=== PATIENT | female | born 1985 ===

== ENCOUNTER 2017-10-09 20:20 | Emergency (ER) | payer OTHER ==
[~2017-10-09] VITALS: Ht 154.9 cm; Wt 59.1 kg
[2017-10-09 20:22] VITALS: BP 154/99
[2017-10-09 20:47] LABS: CLARITY,URINE SLIGHTLY CLOUDY (Clear); COLOR,URINE YELLOW (Yellow); GLUCOSE, URINE NEGATIVE (Neg); KETONES,URINE NEGATIVE (Neg); LEUKOCYTE ESTERASE ,URINE MODERATE (Neg); NITRITES, URINE NEGATIVE (Neg); OCCULT BLOOD,URINE LARGE (Neg); PH,URINE 6.5 (4.8-8.0); PROTEIN,URINE TRACE mg/dl (Neg)
[2017-10-09 20:51] LABS: UA COLLECTION TYPE CLN CATCH MIDSTREAM
[2017-10-09 20:52] LABS: WBC CLUMPS,URINE FEW /HPF (NEGATIVE); WBC,URINE TNTC /HPF (0-4)
[2017-10-09 20:53] LABS: BACTERIA,URINE 3+ /HPF (Neg); RBC,URINE TNTC /HPF (0-2); SQUAMOUS EPITHELIAL CELL,UR MODERATE /LPF (FEW)
[2017-10-09] MEDS ORDERED: phenazopyridine 100mg tablet PO ONE (21:15)
[2017-10-09] MEDS ORDERED: nitrofuran/nitrofuran macrocrysal 100 MG capsule PO ONE (21:15)
[2017-10-09] MEDS ORDERED: PHEN-873 PO (21:19)
[2017-10-09] MEDS ORDERED: NITR100C6 PO (21:19)
== END 2017-10-09 21:27 | disposition home or self-care (01) ==
LOC: ER 20:21
DX: N30.90 Cystitis, unspecified without hematuria (principal); Z79.899 Other long term (current) drug therapy
CPT/HCPCS: 81001; 87077; 87088; 87186; 99284

== ENCOUNTER 2024-10-15 14:16 | Emergency (ER) | payer BC, OTHER ==
[~2024-10-15] VITALS: Ht 154.9 cm; Wt 79.5 kg
[~2024-10-15 14:16] MED LIST: NITR100C6 PO; PHEN-786 PO
[2024-10-15 14:18] VITALS: BP 139/85; PULSE 80; RESP 15; TEMP 98.7; O2SAT 96
[2024-10-15 14:32] LABS: BILIRUBIN,URINE NEGATIVE (Neg); CLARITY,URINE CLEAR (Clear); COLOR,URINE YELLOW (Yellow); GLUCOSE, URINE NEGATIVE (Neg); KETONES,URINE NEGATIVE (Neg); LEUKOCYTE ESTERASE ,URINE NEGATIVE (Neg); NITRITES, URINE NEGATIVE (Neg); OCCULT BLOOD,URINE NEGATIVE (Neg); PROTEIN,URINE NEGATIVE (Neg); UROBILINOGEN,URINE 0.2 E.U/dL (0.2-1.0)
[2024-10-15 14:38] LABS: UA COLLECTION TYPE CLN CATCH MIDSTREAM
[2024-10-15 16:11] LABS: BASOPHILS # (AUTO) 0.1 X10'3 (0-0.2); BASOPHILS % (AUTO) 0.5 % (0-1); EOSINOPHILS # (AUTO) 0.1 X10'3 (0-0.9); EOSINOPHILS % (AUTO) 0.8 % (0-6); HEMATOCRIT 39.4 % (35.0-45.0); HEMOGLOBIN 13.3 g/dl (12.0-16.0); LYMPHOCYTES # (AUTO) 3.7 X10'3 (1.1-4.8); LYMPHOCYTES % (AUTO) 37.6 % (21-51); MEAN CORPUSCULAR HEMOGLOBIN 29.3 PG (27.0-31.0); MEAN CORPUSCULAR HGB CONC 33.8 g/dL (33.0-36.5); MEAN CORPUSCULAR VOLUME 86.8 FL (78-98); MEAN PLATELET VOLUME 9.7 FL (7.4-10.4); MONOCYTES # (AUTO) 0.7 X10'3 (0-0.9); MONOCYTES % (AUTO) 7.4 % (2-12); NEUTROPHILS # (AUTO) 5.3 X10'3 (1.8-7.7); NEUTROPHILS % (AUTO) 53.7 % (42-75); PLATELET COUNT 247 X10'3 (140-440); RED BLOOD COUNT 4.53 X10'6 (4.20-5.60); RED CELL DISTRIBUTION WIDTH 13.3 % (11.5-14.5); WHITE BLOOD COUNT 9.8 X10'3 (4.5-11.0)
[2024-10-15 16:22] LABS: ALANINE AMINOTRANSFERASE 26 U/L (12-78); ALBUMIN 3.9 G/DL (3.4-5.0); ALKALINE PHOSPHATASE 64 IU/L (46-116); ANION GAP 8 (8-16); ASPARTATE AMINO TRANSFERASE 10 U/L (10-37); BILIRUBIN,TOTAL 0.4 MG/DL (0.1-1.0); BLOOD UREA NITROGEN 12 MG/DL (7-18); BUN/CREATININE RATIO 18.8 (10.0-20.0); CALCIUM 8.9 MG/DL (8.5-10.1); CHLORIDE 103 MMOL/L (99-107); CREATININE 0.64 MG/DL (0.40-0.90); GLUCOSE 109 MG/DL (70-104); LIPASE 31 U/L (16-77); POTASSIUM 3.2 MMOL/L (3.5-5.1); SODIUM 141 MMOL/L (135-145); TOTAL CARBON DIOXIDE 30.2 MMOL/L (24-32); TOTAL PROTEIN 7.7 G/DL (6.4-8.2); eCRCL 87 ML/MIN; eGFR > 90 ML/MIN
--- NOTE | 2024-10-15 16:49 | Physician Documentation ---
History of Present Illness ~ Chief Complaint: Urinary Symptoms Stated Complaint: URINARY COMPLICATIONS Time Seen by MD: 14:33 Primary Medical Doctor: Lashae CARABALLO Patient is seen today with complaints of suprapubic pressure as well as vague low back pain. Patient is concerned for urinary tract infection. She denies any dysuria or urinary urgency or frequency. Patient denies any fevers or chills or chest pain or shortness of breath or abdominal pain or nausea, vomiting, diarrhea. Patient has no other concern or complaint at this time. She states she was feeling kind of tired yesterday and wanted to get checked out today. Patient denies any cough or runny nose or sore throat or cold-like symptoms. Medication Reconciliation Allergies: Coded Allergies: No Known Allergies (Unverified , 10/09/17) Scheduled Nitrofurantoin Monohyd/M-Cryst (Macrobid 100 mg Capsule), 1 CAP PO Q12H Scheduled PRN Phenazopyridine Hcl (Pyridium tablet), 1 TAB PO Q8H PRN for urinary burning Past Medical History Past Medical History: UTI Past Surgical History: no surgical history Alcohol Use: None Drug Use: none Lives In: Home Occupation: employed Review of Systems Constitutional: Denies: chills, fever, weakness Eyes: Denies: pain, blurred vision ENT: Denies: ear pain, nose pain, throat pain, mouth pain Respiratory: Denies: cough, shortness of breath Cardiovascular: Denies: chest pain, palpitations Gastrointestinal: Denies: abdominal pain, nausea, vomiting Genitourinary: Denies: burning, dysuria Female Genitalia: Denies: vaginal discharge, pelvic pain Neurological: Denies: headache, dizziness Musculoskeletal: Denies: pain, swelling Integumentary: Denies: rash, lesions Allergic/Immunologic: Denies: hives, itching Hematologic/Lymphatic: Denies: no symptoms reported Psychiatric: Denies: depression, anxiety Physical Exam Vital Signs: Temperature: 98.7, Source: Temporal, Heart Rate: 80, Respiratory Rate: 15, BP: 139/85, Pulse Oximetry: 96, Weight: 79.500 Physical Exam General: Awake and Alert, no acute distress. HEENT: Conjunctiva pink, Sclera clear, Mucus Membranes moist. Neck: Supple without masses and tenderness. Resp: Unlabored. Lungs clear to auscultation bilaterally. Heart: Regular Rate and rhythm, normal S1 and S2 without murmur, rub or gallop. Abdomen: Patient on exam has no CVA tenderness on either side. Soft and non tender no organomegaly Extremities: No cyanosis,clubbing or edema. Skin: Warm and Dry. Progress Results/Orders Results/Orders Orders - TONIO COLES R PAC Hcg, Ur Ql (10/15/24 15:48) Completed Orders - TONIO COLES R PAC Cbc/Diff (10/15/24 15:48) BMP (10/15/24 15:48) Lipase (10/15/24 15:48) CMP (10/15/24 15:48) Vital Signs 10/15/24 14:18 Temp 98.7 Pulse 80 Resp 15 B/P (MAP) 139/85 Pulse Ox 96 Laboratory Tests Test 10/15/24 14:21 10/15/24 15:58 Urine Specimen Description Cln catch midstream Urine Color Yellow Urine Clarity Clear Urine pH 6.0 Urine Specific [place] 1.015 Urine Protein Negative Urine Glucose (UA) Negative Urine Ketones Negative Urine Occult Blood Negative Urine Nitrite Negative Urine Bilirubin Negative Urine Urobilinogen 0.2 Urine Leukocyte Esterase Negative Urine Culture Indicated Not ind Volume Urine Centrifuged 10 ml Urine Comment White Blood Count 9.8 Red Blood Count 4.53 Hemoglobin 13.3 Hematocrit 39.4 Mean Corpuscular Volume 86.8 Mean Corpuscular Hemoglobin 29.3 Mean Corpuscular Hemoglobin Concent 33.8 Red Cell Distribution Width 13.3 Platelet Count 247 Mean Platelet Volume 9.7 Neutrophils (%) (Auto) 53.7 Lymphocytes (%) (Auto) 37.6 Monocytes (%) (Auto) 7.4 Eosinophils (%) (Auto) 0.8 Basophils (%) (Auto) 0.5 Neutrophils # (Auto) 5.3 Lymphocytes # (Auto) 3.7 Monocytes # (Auto) 0.7 Eosinophils # (Auto) 0.1 Basophils # (Auto) 0.1 CBC Comment Sodium Level 141 Potassium Level 3.2 L Chloride Level 103 Carbon Dioxide Level 30.2 Anion Gap 8 Blood Urea Nitrogen 12 Creatinine 0.64 Estimated GFR/1.73 m2 > 90 BUN/Creatinine Ratio 18.8 Glucose Level 109 H Calcium Level 8.9 Total Bilirubin 0.4 Aspartate Amino Transf (AST/SGOT) 10 Alanine Aminotransferase (ALT/SGPT) 26 Alkaline Phosphatase 64 Total Protein 7.7 Albumin 3.9 Globulin 3.8 Albumin/Globulin Ratio 1.0 L Lipase 31 Chemistry Comments Medical Decision Making Findings Patient is seen today with complaints of suprapubic pressure as well as vague low back pain. Patient is concerned for urinary tract infection. She denies any dysuria or urinary urgency or frequency. Patient denies any fevers or chills or chest pain or shortness of breath or abdominal pain or nausea, vomiting, diarrhea. Patient has no other concern or complaint at this time. She states she was feeling kind of tired yesterday and wanted to get checked out today. Patient denies any cough or runny nose or sore throat or cold-like symptoms. Patient did have labs and UA performed today which were largely unremarkable. I do not appreciate any sign of urinary tract infection. Patient will continue to monitor symptoms closely. Patient will return to ED with any worsening, concerning or changing symptoms. Departure Disposition: HOME / SELF CARE / HOMELESS Impression: Primary Impression: Low back pain Qualified Codes: M54.50 - Low back pain, unspecified Condition: Stable Discharge Instructions: Urinary Tract Infection, Adult Additional Instructions: Patient did have labs and UA performed today which were largely unremarkable. I do not appreciate any sign of urinary tract infection. Patient will continue to monitor symptoms closely. Patient will return to ED with any worsening, concerning or changing symptoms. Referrals: NO PRIMARY CARE PROVIDER (PCP) Signature Scribe Signature: No scribe Attestation: No scribe TONIO COLES PAC Oct 15, 2024 16:49
[2024-10-15 18:09] LABS: URINE HCG NEGATIVE (NEG)
== END 2024-10-15 17:28 | disposition home or self-care (01) ==
LOC: ER 14:17
DX: M54.50 Low back pain, unspecified (principal); Z79.899 Other long term (current) drug therapy
CPT/HCPCS: 36415; 80053; 81003; 81025; 83690; 85025; 99283

== ENCOUNTER 2024-12-04 14:50 | Outpatient (CLI) | payer BC ==
[2024-12-04 15:43] LABS: CHOL/HDL RATIO 3.5 (0.00-4.99); LDL CHOLESTEROL 104 MG/DL (50-100)
== END 2024-12-04 23:59 | disposition home or self-care (01) ==
LOC: RAD 14:50
PROVIDERS: ATTEND Family Medicine
DX: R73.09 Other abnormal glucose (principal); E78.2 Mixed hyperlipidemia; E83.52 Hypercalcemia; R87.1 Abnormal level of hormones in specimens from female genital organs
CPT/HCPCS: 36415; 80061; 82306; 82670; 83036